=== PATIENT | female | born 1980 | race Caucasian/White ===

== ENCOUNTER 2019-08-25 14:11 | Emergency (ER) | payer BC, OTHER ==
[~2019-08-25] VITALS: Ht 160 cm; Wt 79.5 kg
--- NOTE | 2019-08-25 14:39 | PHYS DOC ---
Past History Past Medical History: No Pertinent History Past Surgical History: No Surgical History Alcohol Use: Occasionally Drug Use: None Adult General Chief Complaint Chief Complaint: GROIN PAIN [facility] HPI 39-year-old female presents with left lower quadrant abdominal pain. The pain started last night. The pain is been a deep cramping sensation and has been constant since then. She thought her mind away but it has not. It is moderate to severe in intensity. She called her POULTRY INSPECTOR because she had an ablation in June. Her POULTRY INSPECTOR suggested she come the emergency room for evaluation. Patient denies nausea, vomiting, diarrhea, constipation. She denies any change in vaginal discharge or odor. No dysuria or urinary frequency. No history of kidney stones or ovarian cysts. She has no other complaints this time. Denies fever chills. Review of Systems Review of Systems Constitutional: Denies fever or chills [] Eyes: Denies change in visual acuity, redness, or eye pain [] HENT: Denies nasal congestion or sore throat [] Respiratory: Denies cough or shortness of breath [] Cardiovascular: No additional information not addressed in HPI [] GI: LLQ abdominal pain. Denies nausea, vomiting, bloody stools or diarrhea [] : Denies dysuria or hematuria [] Musculoskeletal: Denies back pain or joint pain [] Integument: Denies rash or skin lesions [] Neurologic: Denies headache, focal weakness or sensory changes [] Endocrine: Denies polyuria or polydipsia [] All other systems were reviewed and found to be within normal limits, except as documented in this note. Allergies Allergies Allergies Coded Allergies Type Severity Reaction Last Updated Verified No Known Drug Allergies 02/24/19 No Physical Exam Physical Exam Constitutional: Well developed, well nourished, mild acute distress, non-toxic appearance. [] HENT: Normocephalic, atraumatic, bilateral external ears normal, oropharynx moist, no oral exudates, nose normal. [] Eyes: PERRLA, EOMI, conjunctiva normal, no discharge. [] Neck: Normal range of motion, no tenderness, supple, no stridor. [] Cardiovascular:Heart rate regular rhythm, no murmur [] Lungs & Thorax: Bilateral breath sounds clear to auscultation [] Abdomen: Bowel sounds normal, soft, LLQ tenderness, no masses, no pulsatile masses. [] Skin: Warm, dry, no erythema, no rash. [] Back: No tenderness, no CVA tenderness. [] Extremities: No tenderness, no cyanosis, no clubbing, ROM intact, no edema. [] Neurologic: Alert and oriented X 3, normal motor function, normal sensory function, no focal deficits noted. [] Psychologic: Affect normal, judgement normal, mood normal. [] EKG EKG [] Radiology/Procedures Radiology/Procedures [] Impressions: CT ABD PELV W/ IV CONTRST ONLY Indication: Left lower quadrant pain Technique: Postcontrast CT imaging was performed of the abdomen and pelvis, multiplanar reconstruction images submitted. No oral contrast was given. One or more of the following individualized dose reduction techniques were utilized for this examination: 1. Automated exposure control 2. Adjustment of the mA and/or kV according to patient size 3. Use of iterative reconstruction technique. Comparison: None Findings: There is no abnormality of the limited visualized lung bases. There is no focal abnormality identified of the liver, pancreas, spleen. There is a small accessory spleen. Gallbladder is present without obvious intraluminal abnormality by CT. There is no adrenal nodularity. Both kidneys enhance, no hydronephrosis. There is a small hypodense lesion of the mid right kidney is small likely characterize about 0.5 cm in size. Accurate evaluation of bowel is somewhat limited without oral contrast, no significant bowel dilatation, free fluid, free air. There is some increased submucosal fat of the distal small bowel. Normal caliber appendix is visualized without adjacent inflammatory change. There is hypodense lesion with internal septation or loculation of the left adnexa, maximal overall dimension about 3.4 cm AP by 2.5 cm transverse by 1.8 cm cc. There is L5-S1 vacuum disc disease. IMPRESSION: 1. There is septated or somewhat loculated hypodense lesion of the left adnexa, statistically more likely a cyst. 2. There is no significant inflammatory type change about the bowel. There is some increased submucosal fat of the distal small bowel which could be sequela of chronic or recurrent inflammatory change. Electronically signed by: Lang Wilcox MD (08/25/2019 4:08 PM) [facility] DICTATED AND SIGNED BY: LANG WILCOX MD DATE: 08/25/19 3705 CC: NGUYEN VILLANUEVA DO; ROBERTO GUNN MD ~ US PELVIS History: Left groin pain Comparison: None. Findings: Multiple transabdominal sonographic images of the pelvis are submitted. Uterus measured 9 x 3.7 cm x 4.6 cm. Endometrium measured 0.5 cm in thickness. Left ovary measured 2.3 x 1.9 x 1.4 cm with normal low resistance vascularity and color flow. There is a hypoechoic lesion of the left ovary on the order of 1.8 cm. Right ovary measured 4.5 x 3.5 x 3 cm with normal low resistance vascularity and color flow. There is a hypoechoic lesion of the right ovary 3.6 x 2.6 x 2.9 cm in size. No significant free fluid is demonstrated. Impression: 1. There are bilateral ovarian cysts, right greater than left. Electronically signed by: Lang Wilcox MD (08/25/2019 3:44 PM) [facility] DICTATED AND SIGNED BY: LANG WILCOX MD DATE: 08/25/19 1544 CC: NGUYEN VILLANUEVA DO; ROBERTO GUNN MD ~ Course & Med Decision Making Course & Med Decision Making Pertinent Labs and Imaging studies reviewed. (See chart for details) The patient's labs are unremarkable. Her ultrasound and her CT scan both show bilateral ovarian cysts. It is likely that this is the source of her discomfort. I will offer her pain medication for home. She will further discuss options with OB if this does not resolve the next day or 2. She is stable for discharge at this time. [] Dragon Disclaimer Dragon Disclaimer This electronic medical record was generated, in whole or in part, using a voice recognition dictation system. Departure Departure: Impression: Primary Impression: Ovarian cyst Disposition: HOME, SELF-CARE Condition: STABLE Referrals: ROBERTO GUNN MD (PCP) Patient Instructions: Ovarian Cyst, [id number] Scripts Hydrocodone Bit/Acetaminophen (NORCO 5-325 TABLET) 1 Each Tablet 1 TAB PO PRN Q6HRS PRN for PAIN, #10 TAB 0 Refills Prov: NGUYEN VILLANUEVA DO 08/25/19 Problem Qualifiers Primary Impression: Ovarian cyst Laterality: bilateral Qualified Codes: N83.201 - Unspecified ovarian cyst, right side; N83.202 - Unspecified ovarian cyst, left side NGUYEN VILLANUEVA DO Aug 25, 2019 14:39
[2019-08-25] MEDS ORDERED: CONTRAST GIVEN MC PRN (15:00)
[2019-08-25] MEDS ORDERED: IOHEXOL 300 MG/ML 75 ML VIAL. IV ONE (15:15)
[2019-08-25] MEDS ORDERED: KETOROLAC 30 MG/ML VIAL. IVP ONE (15:15)
[2019-08-25 15:26] VITALS: BP 148/88
[2019-08-25 15:36] LABS: BASO # 0.1 x10^3/uL (0.0-0.2); BASO % 1 % (0-3); EOS # 0.2 x10^3/uL (0.0-0.7); EOS % 3 % (0-3); HEMATOCRIT 42.6 % (36.0-47.0); HEMOGLOBIN 14.3 g/dL (12.0-15.5); LYMPH # 1.7 x10^3/uL (1.0-4.8); LYMPH % 29 % (24-48); MEAN CORPUSCULAR HEMOGLOBIN 30 pg (25-35); MEAN CORPUSCULAR HGB CONC 34 g/dL (31-37); MEAN CORPUSCULAR VOLUME 91 fL (79-100); MONO # 0.4 x10^3/uL (0.0-1.1); MONO % 7 % (0-9); NEUT # 3.6 x10^3uL (1.8-7.7); NEUT % 60 % (31-73); PLATELET COUNT 370 x10^3/uL (140-400)
--- NOTE | 2019-08-25 15:47 | RAD ---
US PELVIS History: Left groin pain Comparison: None. Findings: Multiple transabdominal sonographic images of the pelvis are submitted. Uterus measured 9 x 3.7 cm x 4.6 cm. Endometrium measured 0.5 cm in thickness. Left ovary measured 2.3 x 1.9 x 1.4 cm with normal low resistance vascularity and color flow. There is a hypoechoic lesion of the left ovary on the order of 1.8 cm. Right ovary measured 4.5 x 3.5 x 3 cm with normal low resistance vascularity and color flow. There is a hypoechoic lesion of the right ovary 3.6 x 2.6 x 2.9 cm in size. No significant free fluid is demonstrated. Impression: 1. There are bilateral ovarian cysts, right greater than left. Electronically signed by: Siva Castro MD (08/25/2019 3:44 PM) [facility]
[2019-08-25 15:50] LABS: CALCIUM 8.6 mg/dL (8.5-10.1); CREATININE 0.7 mg/dL (0.6-1.0); GFR 92.2
[2019-08-25 15:56] LABS: ALBUMIN 3.4 g/dL (3.4-5.0); ALBUMIN/GLOBULIN RATIO 0.9 (1.0-1.7); TOTAL BILIRUBIN 0.2 mg/dL (0.2-1.0); TOTAL PROTEIN 7.4 g/dL (6.4-8.2)
--- NOTE | 2019-08-25 16:11 | RAD ---
CT ABD PELV W/ IV CONTRST ONLY Indication: Left lower quadrant pain Technique: Postcontrast CT imaging was performed of the abdomen and pelvis, multiplanar reconstruction images submitted. No oral contrast was given. One or more of the following individualized dose reduction techniques were utilized for this examination: 1. Automated exposure control 2. Adjustment of the mA and/or kV according to patient size 3. Use of iterative reconstruction technique. Comparison: None Findings: There is no abnormality of the limited visualized lung bases. There is no focal abnormality identified of the liver, pancreas, spleen. There is a small accessory spleen. Gallbladder is present without obvious intraluminal abnormality by CT. There is no adrenal nodularity. Both kidneys enhance, no hydronephrosis. There is a small hypodense lesion of the mid right kidney is small likely characterize about 0.5 cm in size. Accurate evaluation of bowel is somewhat limited without oral contrast, no significant bowel dilatation, free fluid, free air. There is some increased submucosal fat of the distal small bowel. Normal caliber appendix is visualized without adjacent inflammatory change. There is hypodense lesion with internal septation or loculation of the left adnexa, maximal overall dimension about 3.4 cm AP by 2.5 cm transverse by 1.8 cm cc. There is L5-S1 vacuum disc disease. IMPRESSION: 1. There is septated or somewhat loculated hypodense lesion of the left adnexa, statistically more likely a cyst. 2. There is no significant inflammatory type change about the bowel. There is some increased submucosal fat of the distal small bowel which could be sequela of chronic or recurrent inflammatory change. Electronically signed by: Siva Castro MD (08/25/2019 4:08 PM) [facility]
[2019-08-25] MEDS ORDERED: HYDR-3165 PO (16:24)
[2019-08-25 16:54] LABS: BACTERIA,URINE 0 /HPF (0-FEW); BILIRUBIN,URINE NEG (NEG); CLARITY,URINE CLEAR; COLOR,URINE STRAW; GLUCOSE,URINE NEG (NEG); NITRITE,URINE NEG (NEG); RBC,URINE 0 /HPF (0-2); SQUAMOUS EPITHELIAL CELL,UR OCC /LPF; UROBILINOGEN,URINE 0.2 mg/dL (0.2 mg/dL)
== END 2019-08-25 16:30 | disposition home or self-care (01) ==
LOC: MERGE 14:11 → ER 14:11
DX: N83.202 Unspecified ovarian cyst, left side (principal); N83.201 Unspecified ovarian cyst, right side
CPT/HCPCS: 36415; 74177; 76856; 80053; 81001; 85025; 96374; 99285; J1885; Q9967

== ENCOUNTER 2021-03-30 00:23 | Emergency (ER) | payer BC ==
[~2021-03-30] VITALS: Ht 160 cm; Wt 76.7 kg
[~2021-03-30 00:23] MED LIST: HYDR-3165 PO
[2021-03-30] MEDS ORDERED: ACETAMINOPHEN 500 MG TABLET PO ONE (00:45)
[2021-03-30] MEDS ORDERED: IBUPROFEN 600 MG TABLET. PO ONE (00:45)
--- NOTE | 2021-03-30 01:10 | RAD ---
XR LT WRIST 3VIEWS, XR ELBOW COMPLETE_LEFT 3+VIEWS, XR FOREARM_LEFT 2 VIEWS 03/30/2021 12:48 AM INDICATION: Pain with fall COMPARISON: None available. TECHNIQUE: 3 views of the left elbow, 2 views of the left forearm and 3 views the left wrist are pro vided. FINDINGS/ IMPRESSION: No significant elbow joint effusion. Subtle irregularity of the coronoid process of the ulna could re present a nondisplaced fracture. Joint spaces are maintained. Bone mineralization is within normal li mits. Regional soft tissues are within normal limits. There is no soft tissue gas or osseous erosion. No radiopaque foreign body. Wrist and forearm are intact. Electronically signed by: Delfina Gallegos MD (03/30/2021 1:08 AM) [facility]
--- NOTE | 2021-03-30 01:18 | PHYS DOC ---
Past History Past Medical History: Ovarian Cyst Past Surgical History: Other Additional Past Surgical Histo: ovarian ablation Additional Smoking Information: 5 cigarettes/day Alcohol Use: Occasionally Drug Use: None Adult General Chief Complaint Chief Complaint: MECHANICAL FALL HPI HPI Patient is a 41-year-old female presents with left wrist and elbow pain after tripping in a hole in her yard and falling with an outstretched hand. States that the pain is 7 out of 10, dull and achy in nature. Denies any other injuries. States she did not take any medications. Review of Systems Review of Systems Review of systems otherwise unremarkable except noted in HPI Current Medications Current Medications Current Medications Medications (Trade) Dose Ordered Sig/Jamie Start Time Stop Time Status Last Admin Dose Admin Acetaminophen (Tylenol) 1,000 mg 1X ONCE 03/30/21 00:45 03/30/21 00:48 DC 03/30/21 00:59 1,000 MG Ibuprofen (Motrin) 600 mg 1X ONCE 03/30/21 00:45 03/30/21 00:48 DC 03/30/21 00:58 600 MG Allergies Allergies Allergies Coded Allergies Type Severity Reaction Last Updated Verified No Known Drug Allergies 08/27/19 No Physical Exam Physical Exam Constitutional: Well developed, well nourished, no acute distress, non-toxic appearance. [] Skin: Warm, dry, no erythema, no rash. [] Back: No tenderness, no CVA tenderness. [] Extremities: Tenderness around left elbow with no obvious bruising, swelling or deformities as well as tenderness around the wrist with no bruising, deformities. Neurovascular exam intact Neurologic: Alert and oriented X 3, normal motor function, normal sensory function, no focal deficits noted. [] Psychologic: Affect normal, judgement normal, mood normal. [] Current Patient Data Vital Signs Vital Signs Date Time Temp Pulse Resp B/P (MAP) Pulse Ox O2 Delivery O2 Flow Rate FiO2 03/30/21 00:30 97.9 76 20 123/73 (90) 98 Room Air EKG EKG [] Radiology/Procedures Radiology/Procedures [] XR LT WRIST 3VIEWS, XR ELBOW COMPLETE_LEFT 3+VIEWS, XR FOREARM_LEFT 2 VIEWS 03/30/2021 12:48 AM INDICATION: Pain with fall COMPARISON: None available. TECHNIQUE: 3 views of the left elbow, 2 views of the left forearm and 3 views the left wrist are provided. FINDINGS/ IMPRESSION: No significant elbow joint effusion. Subtle irregularity of the coronoid process of the ulna could represent a nondisplaced fracture. Joint spaces are maintained. Bone mineralization is within normal limits. Regional soft tissues are within normal limits. There is no soft tissue gas or osseous erosion. No radiopaque foreign body. Wrist and forearm are intact. Electronically signed by: Delfina Gallegos MD (03/30/2021 1:08 AM) [facility] Heart Score C/O Chest Pain: No Risk Factors: Risk Factors: DM, Current or recent (<one month) smoker, HTN, HLP, family history of CAD, obesity. Risk Scores: Risk Factors: DM, Current or recent (<one month) smoker, HTN, HLP, family history of CAD, obesity. Course & Med Decision Making Course & Med Decision Making Patient is 41-year-old female who presents with left elbow and wrist pain after falling on an outstretched arm Vital signs not concerning. Physical exam noted above. Given Tylenol, ibuprofen and ice pack. Imaging with no acute osseous abnormalities but with subtle irregularity of the coronoid process of the ulna which could represent a nondisplaced fracture. Placed in a double sugar tong splint. Discussed all findings with patient. Discussed symptom management at home. Advised to follow-up in the morning with her primary care physician to set up a follow-up for reimaging in approximately a week. Gave return precautions to the ED. Patient grateful, verbalized understanding and agreed with plan of discharge. Dragon Disclaimer Dragon Disclaimer This electronic medical record was generated, in whole or in part, using a voice recognition dictation system. Departure Departure: Impression: Primary Impression: Fracture of coronoid process of ulna, open Disposition: HOME / SELF CARE / HOMELESS Condition: GOOD Referrals: ROBERTO GUNN MD (PCP) Patient Instructions: Splint Care-Brief, Ulnar Fracture Additional Instructions: Thank you for coming into the emergency department tonight and allowing us to take care of you. Please read the attached information carefully to go back over some of the things we discussed. Please use Tylenol and ibuprofen as well as ice as your main pain control at home. Please use your prescription pain medicine for breakthrough only. Please keep your splint on until you see your primary care physician or an orthopedic surgeon. Please call your primary care physician in the morning to update on ED visit and set up a follow-up in approximately a week for reevaluation. You can also call the [facility] orthopedic group at [phone] in the morning to set up a follow-up appointment. Please come back to the ED with new or concerning symptoms as we discussed. Scripts Hydrocodone Bit/Acetaminophen (HYDROCODONE-APAP 5-325 ) 1 Each Tablet 1 TAB PO TID PRN for PAIN for 3 Days, #9 TAB 0 Refills Prov: PIERCE CASTELAN MD 03/30/21 PIERCE CASTELAN MD Mar 30, 2021 01:17
[2021-03-30] MEDS ORDERED: oxyCODONE IR 5 MG TABLET PO PRN (01:30)
[2021-03-30] MEDS ORDERED: HYDR-2155 PO (01:33)
[2021-03-30 02:00] VITALS: BP 122/70
== END 2021-03-30 02:05 | disposition home or self-care (01) ==
LOC: ER 00:23
DX: S52.042 Displaced fracture of coronoid process of left ulna (principal); F17.210 Nicotine dependence, cigarettes, uncomplicated; W01.0XXA Fall on same level from slipping, tripping and stumbling without subsequent striking against object, initial encounter; Y93.89 Activity, other specified; Y92.89 Other specified places as the place of occurrence of the external cause; Y99.8 Other external cause status
CPT/HCPCS: 29125; 73080; 73090; 73110; 99284

== ENCOUNTER → 2021-04-09 | Outpatient (CLI) | payer BC ==
[2021-03-30 02:00] VITALS: BP 122/70
[~2021-04-09] MED LIST changes: +HYDR-2155 PO
--- NOTE | 2021-04-09 16:19 | RAD ---
EXAM: 3 views of the left wrist DATE: 04/09/2021 11:46 AM INDICATION: Reason: LATERAL LEFT WRIST PAIN FROM 03/29. Instructions: / History: COMPARISON: No Prior FINDINGS: No acute fracture. Apparent volar positioning of the distal ulna. Joint spaces are preserved without significant degenerative/proliferative change. Soft tissue swelling about the distal left forearm. IMPRESSION: 1. No acute fracture 2. Apparent volar positioning of the distal ulna at the distal radioulnar joint, this may correlate with clinical examination for distal radioulnar joint separation. Electronically signed by: Martin Gentile MD (04/09/2021 4:17 PM) [id number]
== END ==
LOC: RAD 11:41
PROVIDERS: ATTEND Physician Assistant
DX: M79.89 Other specified soft tissue disorders (principal); M25.532 Pain in left wrist
CPT/HCPCS: 73110